=== PATIENT | female | born 1935 | race Caucasian/White ===

== ENCOUNTER 2018-01-30 07:49 | Day surgery (SDC) | payer MEDICARE, BC ==
[~2018-01-30 07:49] MED LIST: Cefuroxime 10 MG/ML SYRINGE EYERT SCH; Lidocaine 1% PF 2 ML SDV INJECT SCH; Pilocarpine 4% Ophth Soln 15 ML Bot EYERT SCH
[2018-01-30] MEDS: Polymyxin B/Trimethoprim 10 ML Bottle EYERT SCH ×3 (08:22→10:13)
[2018-01-30] MEDS: Brimonidine 0.2% Ophth Soln 5 ML Bottle EYERT SCH ×3 (08:26→10:13)
[2018-01-30] MEDS: Phenylephrine 2.5% Ophth Soln 2 ML Bot EYERT SCH ×5 (08:30→09:55)
[2018-01-30] MEDS: Tropicamide 1% Ophth Soln 3 ML Bottle EYERT SCH ×4 (08:34→09:15)
[2018-01-30] MEDS: Tetracaine HCl/PF 0.5% 4 ML Bottle EYERT SCH ×2 (09:37→10:04)
--- NOTE | 2018-01-30 09:46 | PCM.PREANE ---
Preanesthetic Assessment - Procedure Proposed Procedure: Right eye extraction cataract with implant - Anesthesia/Transfusion/Family Hx Anesthesia History: No Prior Anesthesia Family History of Anesthesia Reaction: No Transfusion History: Prior Transfusion Without Reaction Intubation History: Unknown - Review of Systems General: No Symptoms Pulmonary: No Symptoms Cardiovascular: Other (murmurs ) Gastrointestinal: No Symptoms Neurological: No Symptoms Other: Reports: None - Physical Assessment NPO Status Date: 01/29/18 NPO Status Time: 18:00 O2 Sat by Pulse Oximetry: 99 Respiratory Rate: 16 Vital Signs: Last Vital Signs Temp 36.4 C 01/30/18 08:10 Pulse 68 01/30/18 08:10 Resp 16 01/30/18 08:10 BP 177/83 H 01/30/18 08:10 Pulse Ox 99 01/30/18 08:10 Height: 1.65 m Weight: 57.153 kg ASA Class: 2 Mental Status: Alert & Oriented x3 Airway Class: Mallampati = 1 Dentition: Reports: Normal Dentition Thyro-Mental Finger Breadths: 3 Mouth Opening Finger Breadths: 5 ROM/Head Extension: Full Lungs: Clear to Auscultation, Normal Respiratory Effort Cardiovascular: Regular Rate, Murmurs - Allergies Allergies/Adverse Reactions: Allergies Allergy/AdvReac Type Severity Reaction Status Date / Time No Known Allergies Allergy Verified 01/29/18 15:13 - Blood Blood Available: No - Anesthesia Plan Pre-Op Medication Ordered: None - Acknowledgements Anesthesia Type Planned: MAC Pt an Appropriate Candidate for the Planned Anesthesia: Yes Alternatives and Risks of Anesthesia Discussed w Pt/Guardian: Yes Pt/Guardian Understands and Agrees with Anesthesia Plan: Yes PreAnesthesia Questionnaire - HOME MEDS Home Medications: Home Meds Glimepiride 1 mg PO DAILY 01/29/18 [History] Lisinopril 20 mg PO DAILY 01/29/18 [History] Simvastatin [Zocor] 80 mg PO DAILY 01/29/18 [History] amLODIPine Besylate [Amlodipine Besylate] 5 mg PO DAILY 01/29/18 [History] metFORMIN HCl [Metformin HCl] 1,000 mg PO BID 01/29/18 [History] - CURRENT (IN HOUSE) MEDS Current Meds: Current Medications Brimonidine Tartrate (Alphagan 0.2% Ophth Soln) 0 ml EYERT ASDIRECTED [facility] Stop: 01/30/18 16:00 Last Admin: 01/30/18 09:06 Dose: 1 drop Cefuroxime Sodium (Zinacef) 0 mg EYERT ASDIRECTED [facility] Stop: 01/30/18 18:00 Lidocaine HCl (Xylocaine-Mpf 1%) 1 ml INJECT ASDIRECTED [facility] Stop: 01/30/18 18:00 Phenylephrine HCl (Stanislav-Synephrine 2.5% Ophth Soln) 0 ml EYERT ASDIRECTED [facility] Stop: 01/30/18 18:00 Last Admin: 01/30/18 09:10 Dose: 1 drop Pilocarpine HCl (Pilocar 4% Ophth Soln) 0 ml EYERT ASDIRECTED [facility] Stop: 01/30/18 18:00 Polymyxin/Trimethoprim Sulfate (Polytrim Ophth Soln) 0 ml EYERT ASDIRECTED [facility] Stop: 01/30/18 18:00 Last Admin: 01/30/18 09:01 Dose: 1 drop Tetracaine HCl (Tetracaine 0.5% Steri-Unit Alysa) 0 ml EYERT ASDIRECTED [facility] Stop: 01/30/18 18:00 Last Admin: 01/30/18 09:37 Dose: 1 drop Tropicamide (Mydriacyl 1% Ophth Soln) 0 ml EYERT ASDIRECTED [facility] Stop: 01/31/18 18:00 Last Admin: 01/30/18 09:15 Dose: 1 drop
--- NOTE | 2018-01-30 10:17 | PCM48HPAN ---
Post Anesthesia Note - EVALUATION WITHIN 48HRS OF ANESTHETIC Vital Signs in Normal Range: Yes Patient Participated in Evaluation: Yes Respiratory Function Stable: Yes Airway Patent: Yes Cardiovascular Function Stable: Yes Hydration Status Stable: Yes Pain Control Satisfactory: Yes Nausea and Vomiting Control Satisfactory: Yes Mental Status Recovered: Yes Pulse Rate: 78 SaO2: 97 Resp Rate: 16 Temperature: 36.1 C Blood Pressure: 141/90 Pulse Rate: 78
== END 2018-01-30 10:24 | disposition home or self-care (01) ==
LOC: JD.SDS 07:49
PROVIDERS: ATTEND Ophthalmology
DX: H25.813 Combined forms of age-related cataract, bilateral (principal); H35.3131 Nonexudative age-related macular degeneration, bilateral, early dry stage; H35.363 Drusen (degenerative) of macula, bilateral; H35.373 Puckering of macula, bilateral; H02.831 Dermatochalasis of right upper eyelid; H02.834 Dermatochalasis of left upper eyelid; E11.9 Type 2 diabetes mellitus without complications; E78.00 Pure hypercholesterolemia, unspecified; I10 Essential (primary) hypertension; Z90.710 Acquired absence of both cervix and uterus; Z98.890 Other specified postprocedural states; Z79.84 Long term (current) use of oral hypoglycemic drugs; Z79.899 Other long term (current) drug therapy
CPT/HCPCS: A9270-GY; C1780; J0697; J2001

== ENCOUNTER 2018-02-27 07:36 | Day surgery (SDC) | payer MEDICARE, BC ==
[2018-02-27] MEDS: Polymyxin B/Trimethoprim 10 ML Bottle EYELF SCH ×4 (07:56→09:45)
--- NOTE | 2018-02-27 07:59 | PCM.PREANE ---
Preanesthetic Assessment - Procedure Proposed Procedure: cataract let - Anesthesia/Transfusion/Family Hx Anesthesia History: Prior Anesthesia Without Reaction Family History of Anesthesia Reaction: No Transfusion History: Prior Transfusion Without Reaction Intubation History: Unknown - Review of Systems General: No Symptoms Pulmonary: No Symptoms Cardiovascular: No Symptoms Gastrointestinal: No Symptoms Neurological: No Symptoms Other: Reports: Diabetes - Physical Assessment NPO Status Date: 02/26/18 NPO Status Time: 18:30 Pulse: 66 O2 Sat by Pulse Oximetry: 98 Respiratory Rate: 16 Blood Pressure: 147/62 Temperature: 97 F Height: 5 ft 2 in Weight: 57.153 kg ASA Class: 2 Mental Status: Alert & Oriented x3 Airway Class: Mallampati = 1 Dentition: Reports: Dentures (top and bottom) Thyro-Mental Finger Breadths: 3 Mouth Opening Finger Breadths: 3 Lungs: Clear to Auscultation, Normal Respiratory Effort Cardiovascular: Regular Rate, Regular Rhythm, Murmurs - Allergies Allergies/Adverse Reactions: Allergies Allergy/AdvReac Type Severity Reaction Status Date / Time No Known Allergies Allergy Verified 01/29/18 15:13 - Blood Blood Available: No - Acknowledgements Anesthesia Type Planned: MAC Pt an Appropriate Candidate for the Planned Anesthesia: Yes Alternatives and Risks of Anesthesia Discussed w Pt/Guardian: Yes Pt/Guardian Understands and Agrees with Anesthesia Plan: Yes PreAnesthesia Questionnaire HEENT History: Reports: Impaired Vision Cardiovascular History: Reports: High Cholesterol, Hypertension Oncologic (Cancer) History: Reports: None - SUBSTANCE USE Smoking Status *Q: Never Smoker Tobacco Use Within Last Twelve Months: No Second Hand Smoke Exposure: No Days Per Week of Alcohol Use: 0 Recreational Drug Use History: No - HOME MEDS Home Medications: Home Meds Glimepiride 1 mg PO DAILY 01/29/18 [History] Lisinopril 20 mg PO DAILY 01/29/18 [History] Simvastatin [Zocor] 80 mg PO DAILY 01/29/18 [History] amLODIPine Besylate [Amlodipine Besylate] 5 mg PO DAILY 01/29/18 [History] metFORMIN HCl [Metformin HCl] 1,000 mg PO BID 01/29/18 [History] - CURRENT (IN HOUSE) MEDS Current Meds: Current Medications Brimonidine Tartrate (Alphagan 0.2% Ophth Soln) 0 ml EYELF ASDIRECTED [facility] Stop: 02/27/18 18:00 Cefuroxime Sodium (Zinacef) 0 mg EYELF ASDIRECTED [facility] Stop: 02/27/18 18:00 Lidocaine HCl (Xylocaine-Mpf 1%) 10 ml INJECT ASDIRECTED [facility] Stop: 02/27/18 18:00 Phenylephrine HCl (Stanislav-Synephrine 2.5% Ophth Soln) 0 ml EYELF ASDIRECTED [facility] Stop: 02/27/18 18:00 Pilocarpine HCl (Pilocar 4% Ophth Soln) 0 ml EYELF ASDIRECTED [facility] Stop: 02/27/18 18:00 Polymyxin/Trimethoprim Sulfate (Polytrim Ophth Soln) 0 ml EYELF ASDIRECTED [facility] Stop: 02/27/18 18:00 Tetracaine HCl (Tetracaine 0.5% Steri-Unit Alysa) 0 ml EYELF ASDIRECTED [facility] Stop: 02/27/18 18:00 Tropicamide (Mydriacyl 1% Ophth Soln) 0 ml EYELF ASDIRECTED [facility] Stop: 02/27/18 18:00
[2018-02-27] MEDS: Brimonidine 0.2% Ophth Soln 5 ML Bottle EYELF SCH ×4 (08:01→09:45)
[2018-02-27] MEDS: Phenylephrine 2.5% Ophth Soln 2 ML Bot EYELF SCH ×6 (08:06→09:22)
[2018-02-27] MEDS: Tropicamide 1% Ophth Soln 3 ML Bottle EYELF SCH ×4 (08:12→09:00)
[2018-02-27] MEDS: Tetracaine HCl/PF 0.5% 4 ML Bottle EYELF SCH ×3 (08:55→09:29)
[2018-02-27] MEDS: Lidocaine 1% PF 2 ML SDV INJECT SCH ×2 (08:56→09:29)
[2018-02-27] MEDS: Cefuroxime 10 MG/ML SYRINGE EYELF SCH ×2 (08:56→09:45)
[2018-02-27] MEDS: Pilocarpine 4% Ophth Soln 15 ML Bot EYELF SCH ×2 (08:56→09:45)
--- NOTE | 2018-02-27 09:47 | PCM48HPAN ---
Post Anesthesia Note - EVALUATION WITHIN 48HRS OF ANESTHETIC Vital Signs in Normal Range: Yes Patient Participated in Evaluation: Yes Respiratory Function Stable: Yes Airway Patent: Yes Cardiovascular Function Stable: Yes Hydration Status Stable: Yes Pain Control Satisfactory: Yes Nausea and Vomiting Control Satisfactory: Yes Mental Status Recovered: Yes Pulse Rate: 68 SaO2: 98 Resp Rate: 16 Temperature: 97 F Blood Pressure: 147/70
== END 2018-02-27 09:53 | disposition home or self-care (01) ==
LOC: JD.SDS 07:36
PROVIDERS: ATTEND Ophthalmology
DX: H25.812 Combined forms of age-related cataract, left eye (principal); H35.3131 Nonexudative age-related macular degeneration, bilateral, early dry stage; H35.363 Drusen (degenerative) of macula, bilateral; E11.36 Type 2 diabetes mellitus with diabetic cataract; E78.00 Pure hypercholesterolemia, unspecified; I10 Essential (primary) hypertension; Z98.41 Cataract extraction status, right eye; Z96.1 Presence of intraocular lens; Z83.3 Family history of diabetes mellitus; Z79.84 Long term (current) use of oral hypoglycemic drugs; Z79.899 Other long term (current) drug therapy
CPT/HCPCS: 66984; C1780; J0697; J2001; A9270-GY